=== PATIENT | male | born 1980 | race Caucasian/White ===

== ENCOUNTER 2019-01-30 17:44 | Observation (INO) | payer MEDICARE, MEDICAID ==
[2019-01-30] MEDS ORDERED: SODIUM CHLORIDE 0.9% 1000ML 1,000 ML IVS ONE ×3 (18:05→22:57)
[2019-01-30] MEDS ORDERED: ONDANSETRON INJ 4 MG/2 ML VIAL IV ONE (18:07)
--- NOTE | 2019-01-30 18:10 | ED.PDOC ---
History of Present Illness - General Chief Complaint: Diabetic Complaint Stated Complaint: Elevated BS Time Seen by Provider: 01/30/19 17:56 Source: patient Exam Limitations: no limitations - History of Present Illness Initial Comments: 38-year-old male with diabetes presents to the emergency department complaining of hyperglycemia. He reports that his insulin pen got frozen and he has been unable to inject himself with the appropriate amount of insulin and his blood sugars have been over 400 for the last 2 days. He denies any associated vomiting but has had nausea. He also reports that he ran out of his gabapentin and so is having worsening of the numbness in his feet and bilateral hands. He denies any fever or chills. He has not had any cough or congestion. Symptoms are currently moderate in severity and nothing he does seems to make them significantly better or worse. Allergies/Adverse Reactions: Allergies NO KNOWN ALLERGY Allergy (Verified 01/30/19 18:04) Home Medications: Ambulatory Orders Gabapentin 600 mg PO BID 01/30/19 Insulin Aspart Mix 70/30 [Novolog Mix 70/30] 15 units SUBCU BID 01/30/19 Review of Systems - Review of Systems Constitutional: States: malaise. Denies: fever, weakness EENTM: Denies: nose congestion, throat pain Respiratory: Denies: cough, short of breath Cardiology: Denies: chest pain, palpitations Gastrointestinal/Abdominal: States: nausea. Denies: abdominal pain, vomiting Genitourinary: States: frequency. Denies: dysuria Musculoskeletal: Denies: muscle pain, neck pain Skin: Denies: lesions, rash Neurological: States: numbness - bilateral hands and feet. Denies: headache, weakness Past Medical History (General) - Patient Medical History Hx Stroke: No Hx Cardiac Disorders: No Hx Hypertension: No Hx Diabetes: Yes Hx Cancer: No Surgical History: no surgical history - Vaccination History Hx Tetanus, Diphtheria Vaccination: No Hx Influenza Vaccination: Yes Hx Pneumococcal Vaccination: No Immunizations Up to Date: No - Social History Hx Tobacco Use: Yes Hx Alcohol Use: No Hx Substance Use: No Hx Substance Use Treatment: No Hx Depression: No - Female History Patient is a Female of Child Bearing Age (10 -59 yrs old): No Patient : No Family Medical History - Family History Mother Family History: No Known Physical Exam - Physical Exam General Appearance: Alert, Other - Thin Eye Exam: bilateral normal Ears, Nose, Throat: normal ENT inspection, normal pharynx Neck: full range of motion, normal inspection Respiratory: lungs clear, normal breath sounds, no respiratory distress Cardiovascular/Chest: regular rate, rhythm, no edema Peripheral Pulses: radial,right: 2+, radial,left: 2+, dorsalis pedis,right: 2+, dorsalis pedis,left: 2+ Gastrointestinal/Abdominal: normal bowel sounds, non tender, soft Extremity: normal range of motion, normal inspection, no pedal edema Neurologic: alert, sensory deficit - Reports decreased sensation in a stocking and glove distribution to bilateral hands and feet. No other sensory deficits noted., other - No motor weakness Skin Exam: normal color, warm/dry Comments: Vital Signs (72 hours) 01/30/19 17:56 Temperature 96.3 F L Pulse Rate [ 87 Pulse ox] Respiratory 18 Rate Blood Pressure 114/76 [R brachial] O2 Sat by Pulse 97 Oximetry Progress - Progress Progress: 01/30/19 18:30 Patient recheck: Lab and imaging results discussed along with plan for admission for treatment of his presumed DKA even though his bicarbonate is normal on his chemistry his anion gap is 25 and blood ketones were small however he has large urine ketones. At this time pH was unable to be obtained due to an issue with our ABG machine however it is ordered and they are working on obtaining this level.ice 01/30/19 18:50 I spoke with Jazmyn Pack for the hospitalist service regarding the patient's lab results so far. We discussed plan for admission and a bolus of IV fluids and insulin in the emergency department with recheck of the glucose afterwards and if the blood sugar comes close to the 300s range will admit to the floor most likely with a sliding scale. If not significantly changed will start on insulin drip. 01/30/19 20:02 Repeat fingerstick glucose after fluids and insulin was 330. At this time the patient will be admitted to the floor. - Results/Orders Results/Orders: 01/30/19 18:06 ABG [Arterial Blood Gas] Stat 01/30/19 18:29 ABG [Arterial Blood Gas] Stat Laboratory Results - last 24 hr 01/30/19 01/30/19 01/30/19 17:56 17:56 18:06 WBC 5.6 RBC 5.03 Hgb 15.5 Hct 46.0 MCV 91.5 MCH 30.9 MCHC 33.7 RDW 12.7 Plt Count 316 MPV 9.4 Absolute Neuts (auto) 3.90 Absolute Lymphs (auto) 1.10 Absolute Monos (auto) 0.50 Absolute Eos (auto) 0.10 Absolute Basos (auto) 0.10 Neutrophils % 69.2 Lymphocytes % 18.8 L Monocytes % 9.0 Eosinophils % 2.0 Basophils % 1.0 Sodium 130 L Potassium 5.1 H Chloride 89 L Carbon Dioxide 21 Anion Gap 25.1 H BUN 32 H Creatinine 0.92 BUN/Creatinine Ratio 34.8 H Random Glucose 552 H* Serum Osmolality 292.5 Calcium 9.9 Total Bilirubin 1.2 H AST 18 ALT 22 Alkaline Phosphatase 83 Serum Total Protein 8.1 Albumin 4.3 Globulin 3.8 H Albumin/Globulin Ratio 1.1 Urine Color Urine Appearance Urine pH Ur Specific [place] Urine Protein Urine Glucose (UA) Urine Ketones Urine Blood Urine Nitrite Urine Bilirubin Urine Urobilinogen Ur Leukocyte Esterase Urine RBC Urine WBC Ur Epithelial Cells Urine Bacteria Serum Ketones Small 01/30/19 18:42 WBC RBC Hgb Hct MCV MCH MCHC RDW Plt Count MPV Absolute Neuts (auto) Absolute Lymphs (auto) Absolute Monos (auto) Absolute Eos (auto) Absolute Basos (auto) Neutrophils % Lymphocytes % Monocytes % Eosinophils % Basophils % Sodium Potassium Chloride Carbon Dioxide Anion Gap BUN Creatinine BUN/Creatinine Ratio Random Glucose Serum Osmolality Calcium Total Bilirubin AST ALT Alkaline Phosphatase Serum Total Protein Albumin Globulin Albumin/Globulin Ratio Urine Color Yellow Urine Appearance Clear Urine pH 5.5 Ur Specific [place] 1.015 Urine Protein Negative Urine Glucose (UA) 500 H Urine Ketones >=160 Urine Blood Negative Urine Nitrite Negative Urine Bilirubin Negative Urine Urobilinogen 0.2 Ur Leukocyte Esterase Negative Urine RBC 0-1 Urine WBC 0 Ur Epithelial Cells 0 Urine Bacteria 0 Serum Ketones ABG: pH 7.375. PCO2: 27.2, PO2: 123.3, O2 saturation 99%, HCO3 :16. CXR read by radiology and reviewed by myself: IMPRESSION: No acute cardiopulmonary disease. 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 Departure - Departure Clinical Impression: Neuropathy Diabetes mellitus with ketoacidosis Qualifiers: Diabetes mellitus type: type 2 Diabetes mellitus retirement insulin use: without retirement use Diabetes mellitus complication detail: without coma Qualified Code(s): E11.10 - Type 2 diabetes mellitus with ketoacidosis without coma Time of Disposition: 19:34 Condition: Fair Home Medications: Ambulatory Orders Gabapentin 600 mg PO BID 01/30/19 Insulin Aspart Mix 70/30 [Novolog Mix 70/30] 15 units SUBCU BID 01/30/19 Decision To Admit - Decistion To Admit Decision to Admit Date: 01/30/19 Decision to Admit Time: 18:45
[2019-01-30] MEDS ORDERED: INSULIN, REG.(HUMAN) 100 U/ML VIAL IV ONE (18:53)
--- NOTE | 2019-01-30 18:59 | RAD ---
EXAM DESCRIPTION: Chest,1 View CLINICAL HISTORY:38 years Male, DKA Comparison: None FINDINGS: No focal lung consolidation. No pleural effusion. No pneumothorax. Cardiomediastinal silhouette is within normal limits. No acute osseous abnormality. IMPRESSION: No acute cardiopulmonary disease. Electronically signed by: Melchor Dockery DO 01/30/2019 6:58 PM [employer]
--- NOTE | 2019-01-30 21:24 | HP ---
SUPERVISING PHYSICIAN: Robin Matthews MD CHIEF COMPLAINT: Elevated blood sugar as well as weakness with nausea. HISTORY OF PRESENT ILLNESS: This is a 38-year-old male patient with a history of type 2 diabetes that was diagnosed about 7 or 8 years ago who came to the Emergency Room complaining of elevated blood sugars as well as some weakness with nausea. He said his insulin pen became frozen in his refrigerator and he has been unable to inject himself with his usual insulin dosage and his blood sugars have been over 400. He has had nausea, but no vomiting, very weak with neuropathy. There has been no fever or chills, no cough or congestion. In the Emergency Room, his initial vital signs were temperature 96.3, heart rate 87, blood pressure 114/76, respiratory rate 18, O2 saturation 97% on room air. Lab was done. His CBC was unremarkable. His sodium was 130, potassium 5.1, chloride 89, carbon dioxide 21, anion gap was 25.1, BUN 32, creatinine 0.92. Blood glucose was 552. Total bilirubin 1.2. Urinalysis was unremarkable. He did have a small amount of serum ketones. His chest x-ray showed no acute cardiopulmonary disease. He received some IV regular insulin in the Emergency Room as well as Zofran and 2 liters of saline. I was called for hospital admission. PAST MEDICAL HISTORY: 1. Diabetes mellitus, type 2 PAST SURGICAL HISTORY: None. OUTPATIENT MEDICATIONS: 1. Insulin 70/30. 2. Gabapentin. ALLERGIES: NO KNOWN DRUG ALLERGIES. SOCIAL HISTORY: He lives in [place]. 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 He is . He has 2 children. He smokes about 2 cigarettes daily. He denies any ETOH or illicit drug use. REVIEW OF SYSTEMS: GENERAL: Positive for fatigue. Negative for fever or weight changes. HEENT: Negative for sinus symptoms, ear pain, vision changes or sore throat. RESPIRATORY: Negative for wheezing, coughing or shortness of breath. CARDIAC: Negative for chest pain, palpitations or tachycardia. GASTROINTESTINAL: Positive for nausea. Negative for vomiting or abdominal pain. GENITOURINARY: Positive for increased frequency. Negative for hematuria, dysuria. MUSCULOSKELETAL: Negative for muscle pain or arthralgias. SKIN: Negative for lesions or rashes. NEUROLOGIC: Positive for numbness and neuropathy. Negative for headache or seizures. PHYSICAL EXAMINATION: VITAL SIGNS: Temperature 98.1. Heart rate 72. Blood pressure 122/73. Respiratory rate 20. O2 saturation 98% on room air. GENERAL: This is a 38-year-old male patient who is very thin. He is in no acute distress. HEENT: Normocephalic, atraumatic. Pupils are equal and reactive. Oropharynx is clear, but oral mucous membranes are dry. NECK: Supple without mass. RESPIRATORY: Essentially clear to auscultation bilaterally. CHEST: There is equal rise and fall of the chest with inspiration and expiration. CARDIOVASCULAR: Regular rate and rhythm. GASTROINTESTINAL: Abdomen is soft, nondistended, nontender. Bowel sounds are positive. EXTREMITIES: No cyanosis, clubbing or edema. NEUROLOGIC: Awake, alert and oriented times three. Cranial nerves II-XII are grossly intact. SKIN: Warm and dry. LABORATORY: Labs and films are as per history of present illness. IMPRESSION: 1. Hyperglycemia with positive serum ketones. 2. Diabetes mellitus, type 2. 3. Tobacco abuse. PLAN: The patient has been placed in observation. He will have q.4h. blood sugar sugars with sliding scale insulin. I will check his BMP and serum ketones every 4 hours until they normalize. At this point, he will have saline at 250 and we will change his fluids as his BMPs are resulted. Hopefully in the morning he can restart his routine home medications. He will have SCDs for DVT prophylaxis. He will NPO until the morning. I have given him some Zofran for antiemetics. He will have a proton pump inhibitor for ulcer prophylaxis. We are awaiting the results of ABG as the ABG had to be sent out for results. We will continue to monitor the patient closely and follow as needed. #[id number] [facility]
[2019-01-30] MEDS ORDERED: DEXTROSE 10% 500ML IVPB PRN (22:32)
[2019-01-30] MEDS ORDERED: GLUCAGON INJ 1 MG VIAL SUBCU PRN (22:32)
[2019-01-30] MEDS ORDERED: GABAPENTIN 300 MG CAP ONE (22:48)
[2019-01-30] MEDS: NON-FORMULARY MEDICATION 1 EA MIS (Gabapentin [Gabapentin] 600 MG) PO SCH (22:50)
[2019-01-30] MEDS ORDERED: INSULIN LISPRO 100 UNITS/ML PEN SUBCU ONE (23:02)
[2019-01-30] MEDS ORDERED: ONDANSETRON INJ 4 MG/2 ML VIAL IV PRN (23:03)
[2019-01-30] MEDS ORDERED: ALBUTEROL SULFATE 2.5 MG/3 ML VIAL NEB PRN (23:03)
[2019-01-30] MEDS ORDERED: SODIUM CHLORIDE 0.9% (FLUSH) 10 ML SYG IV PRN (23:03)
[2019-01-30] MEDS ORDERED: IV SET AND CAP CHANGE INJ INJ SCH (23:30)
[2019-01-31] MEDS: INSULIN LISPRO 100 UNITS/ML PEN SUBCU SCH ×4 (00:09→12:02)
[2019-01-31] MEDS ORDERED: KCL 20MEQ/D5 1/2NS 1,000 ML IVS ONE ×2 (03:00→03:04)
[2019-01-31] MEDS ORDERED: GABAPENTIN 300 MG CAP ONE (07:08)
[2019-01-31] MEDS: NON-FORMULARY MEDICATION 1 EA MIS (Gabapentin [Gabapentin] 600 MG) PO SCH (08:18)
[2019-01-31] MEDS ORDERED: SODIUM CHLORIDE 0.9% (FLUSH) 10 ML SYG IV SCH (09:00)
[2019-01-31] MEDS ORDERED: metFORMIN HCL 500 MG TAB PO SCH ×2 (09:00→17:00)
[2019-01-31 10:19] VITALS: BP 110/75; TEMP 98.6; O2SAT 98
[2019-01-31] MEDS ORDERED: GABAPENTIN 300 MG CAP PO SCH (21:00)
--- NOTE | 2019-02-14 08:21 | DS ---
SUPERVISING PHYSICIAN: Viridiana Becerra MD ADMISSION DIAGNOSIS: 1. Hyperglycemia with positive serum ketones. 2. Diabetes mellitus, type 2, poorly controlled. 3. Chronic tobacco abuse. DISCHARGE DIAGNOSIS: 1. Diabetes mellitus, type 2, poorly controlled with a hyperglycemic event, resolved. 2. Chronic tobacco abuse. REASON FOR HOSPITALIZATION: This is a 38-year-old male patient with a history of type 2 diabetes that was diagnosed about 7 or 8 years ago who came to the Emergency Room complaining of elevated blood sugars as well as some weakness with nausea. He said his insulin pen became frozen in his refrigerator and he has been unable to inject himself with his usual insulin dosage and his blood sugars have been over 400. He has had nausea, but no vomiting, very weak with neuropathy. There has been no fever or chills, no cough or congestion. In the Emergency Room, his initial vital signs were temperature 96.3, heart rate 87, blood pressure 114/76, respiratory rate 18, O2 saturation 97% on room air. Lab was done. His CBC was unremarkable. His sodium was 130, potassium 5.1, chloride 89, carbon dioxide 21, anion gap was 25.1, BUN 32, creatinine 0.92. Blood glucose was 552. Total bilirubin 1.2. Urinalysis was unremarkable. He did have a small amount of serum ketones. His chest x-ray showed no acute cardiopulmonary disease. He received some IV regular insulin in the Emergency Room as well as Zofran and 2 liters of saline. The patient was placed in observation in stable condition. LABORATORY: White count on discharge was 4,800, hemoglobin 13.8, hematocrit 40.9. Differential within normal limits. Chemistries showed discharge sodium was 134. Other electrolytes were within normal limits. Blood sugar on admission initially was 336. On discharge, it was 276, magnesium 1.8, calcium 8.4. Urine showed 500 glucose. He had a small amount of ketones initially on admission and prior to discharge was showing negative ketones. RADIOLOGY: Chest x-ray showed no acute cardiopulmonary disease. HOSPITAL COURSE: Mr. Schmitt was admitted as noted for a hyperglycemic event with some ketones, but was not noted to be in full diabetic ketoacidosis. He was given fluids overnight and showed resolution of his ketones and was felt clinically stable enough to discharge to continue with outpatient management. PLAN: Mr. Schmitt was discharged on 01/31/19 with instructions to followup with his primary care physician. He was to avoid putting his insulin in the refrigerator where it would freeze. He was told to return to the hospital as needed for any other concerning symptoms. Diet was diabetic diet. Activity to increase as tolerated. PRESCRIPTIONS WRITTEN AT DISCHARGE: 1. Gabapentin 600 mg twice daily, #60. 2. Insulin NovoLog total of 46 units daily with 20 units in the morning and 26 units at night. He was given 1 bottle prescription with no refills. DISPOSITION: The patient is discharged home. CONDITION ON DISCHARGE: Stable and improved. #[id number] [facility]
== END 2019-01-31 12:19 | disposition home or self-care (01) ==
LOC: ER 17:44 → MS 21:21
PROVIDERS: ADMIT Nurse Practitioner Acute Care; ATTEND Nurse Practitioner Family
DX: E11.65 Type 2 diabetes mellitus with hyperglycemia (principal); R82.4 Acetonuria; F17.210 Nicotine dependence, cigarettes, uncomplicated; E11.42 Type 2 diabetes mellitus with diabetic polyneuropathy; R53.1 Weakness; R11.0 Nausea; Z79.4 Long term (current) use of insulin; Z79.899 Other long term (current) drug therapy

== ENCOUNTER 2019-03-12 00:40 | Emergency (ER) | payer MEDICARE, MEDICAID ==
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
[2019-03-12] MEDS ORDERED: SODIUM CHLORIDE 0.9% 1000ML 1,000 ML IVS ONE ×2 (01:36→03:19)
[2019-03-12] MEDS ORDERED: INSULIN, REG.(HUMAN) 100 U/ML VIAL IV ONE ×2 (02:10→03:18)
[2019-03-12 02:11] VITALS: O2SAT 98
[2019-03-12] MEDS ORDERED: SODIUM CHLORIDE 0.9% 1000ML 500 ML IVS ONE (02:14)
[2019-03-12 04:07] VITALS: BP 118/77; TEMP 97.2
== END 2019-03-12 04:07 | disposition home or self-care (01) ==
LOC: ER 00:40
DX: E11.65 Type 2 diabetes mellitus with hyperglycemia (principal); R05 Cough; Z79.4 Long term (current) use of insulin; Z79.899 Other long term (current) drug therapy; Z87.891 Personal history of nicotine dependence
CPT/HCPCS: 80053; 81001; 82947; 82948; 85025; 87502; J7030

== ENCOUNTER 2019-05-17 22:15 | Emergency (ER) | payer MEDICARE, MEDICAID ==
[2019-05-17] MEDS ORDERED: SODIUM CHLORIDE 0.9% 1000ML 1,000 ML IVS ONE (23:05)
[2019-05-17] MEDS ORDERED: ONDANSETRON INJ 4 MG/2 ML VIAL IV ONE (23:05)
[2019-05-17] MEDS ORDERED: SODIUM CHLORIDE 0.9% (FLUSH) 10 ML SYG IV PRN (23:05)
[2019-05-17] MEDS ORDERED: ALUM & MAG HYDROX-SIMETHICONE 30 ML, LIDOCAINE VISCOUS 2% 15 ML PO ONE ×2 (23:17)
--- NOTE | 2019-05-17 23:19 | ED.PDOC ---
History of Present Illness - General Chief Complaint: General Stated Complaint: weak, stomach pains, for 2 days Time Seen by Provider: 05/17/19 22:36 Source: patient, RN notes reviewed, Vital Signs reviewed Exam Limitations: no limitations - History of Present Illness Initial Comments: Patient is a 38-year-old white male who presents with complaints of abdominal pain and nausea and generalized weakness for the last 2 days. Patient initially thought this might be the flu or strep throat. But since he was not running a fever he does not believe he has this. Additionally, patient thought his blood sugars were out of whack, but when he checked his sugars on the meter they were fine. Patient has been a type I diabetic for approximately 5 years. Patient denies any headache, dizziness, blurry vision, chest pain, shortness of breath, diarrhea. Patient's had some nausea and vomiting. Additionally patient has had some generalized malaise and fatigue. Patient denies any fever or chills. Timing/Duration: getting worse, other - 2 days Severity: moderate Improving Factors: nothing Worsening Factors: movement Associated Symptoms: loss of appetite, malaise, weakness Allergies/Adverse Reactions: Allergies NO KNOWN ALLERGY Allergy (Verified 01/30/19 18:04) Home Medications: Ambulatory Orders Insulin Aspart Mix 70/30 [Novolog Mix 70/30] 15 units SUBCU BID 01/30/19 Gabapentin 600 mg PO BID #60 tab 01/31/19 Insulin Aspart [Novolog Flexpen] 46 units SC DAILY #1 bottle 01/31/19 Metformin HCl [Metformin Hydrochloride] 500 mg PO BID #60 tab 01/31/19 Gabapentin 300 mg PO Q12HR #20 cap 04/16/19 Review of Systems - Review of Systems Constitutional: States: see HPI, chills, malaise, weakness. Denies: fever EENTM: States: see HPI, throat pain, throat swelling. Denies: blurred vision, double vision, nose pain, nose congestion Respiratory: States: see HPI. Denies: cough, short of breath, wheezing Cardiology: States: no symptoms reported. Denies: chest pain, palpitations, syncope Gastrointestinal/Abdominal: States: see HPI, abdominal pain, nausea, vomiting. Denies: diarrhea Genitourinary: States: no symptoms reported. Denies: discharge, dysuria, frequency, hematuria Musculoskeletal: States: no symptoms reported. Denies: back pain, neck pain Skin: States: no symptoms reported. Denies: change in color, rash Neurological: States: see HPI, weakness. Denies: headache, numbness, paresthesia, tingling, tremors Endocrine: States: no symptoms reported. Denies: excessive sweating, flushing, intolerance to cold, intolerance to heat, increased hunger, increased thirst, increased urine Hematologic/Lymphatic: States: no symptoms reported All other Systems: No Change from Baseline Past Medical History (General) - Patient Medical History Hx Seizures: No Hx Stroke: No Hx Dementia: No Hx Asthma: No Hx of COPD: No Hx Cardiac Disorders: No Hx Congestive Heart Failure: No Hx Pacemaker: No Hx Hypertension: No Hx Thyroid Disease: No Hx Diabetes: Yes Hx Gastroesophageal Reflux: No Hx Renal Disease: No Hx Cancer: No Hx of HIV: No Hx Hepatitis C: No Hx MRSA: No Surgical History: no surgical history - Vaccination History Hx Tetanus, Diphtheria Vaccination: Yes Hx Influenza Vaccination: Yes Hx Pneumococcal Vaccination: No Immunizations Up to Date: Yes - Social History Hx Tobacco Use: No Hx Chewing Tobacco Use: No Hx Alcohol Use: No Hx Substance Use: No Hx Substance Use Treatment: No Hx Depression: No Feels Threatened In Home Enviroment: No Feels Threatened In a Relationship: No Hx Physical Abuse: No Hx Emotional Abuse: No Hx Suspected Abuse: No - Activities of Daily Living Hospice Agency (if applicable):: None - Female History Patient is a Female of Child Bearing Age (10 -59 yrs old): No Patient : No Family Medical History - Family History Mother Family History: No Known Age (years): 58 Living Status: Still Living Hx Family;Other: hepatitis hx Physical Exam - Physical Exam General Appearance: Alert, Anxious, Well Developed, Well Groomed Eye Exam: bilateral normal Ears, Nose, Throat: hearing grossly normal, normal pharynx Neck: non-tender, full range of motion, supple, lymphadenopathy (R), lymphadenopathy (L) Respiratory: chest non-tender, lungs clear, normal breath sounds, no respiratory distress, no accessory muscle use Cardiovascular/Chest: normal peripheral pulses, regular rate, rhythm, no edema, no gallop, no JVD, no murmur Peripheral Pulses: radial,right: 2+, radial,left: 2+ Gastrointestinal/Abdominal: normal bowel sounds, soft, no organomegaly, other - Voluntary guarding. 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 05/18/19 00:23 Parents laboratory work shows that he is extremely dehydrated. He also has strep throat. Patient's been given a liter of IV fluids and IV Zofran is feeling much better. Patient was started on treatment for his strep throat with Bicillin 1,200,000 units IM. Plan on taking the patient off work x2 days and follow-up with his PCP. I discussed this plan of care with the patient he voices understanding and agreement. Mikel Carpenter M.D. #[id number] - Results/Orders Results/Orders: 05/17/19 23:05 IV Care:Saline Lock per Protoc QSHIFT Sodium Chloride 0.9% (Flush) [Saline Flush Syringe] 10 ml IV PRN PRN Laboratory Results - last 24 hr 05/17/19 05/17/19 05/17/19 23:20 23:20 23:20 WBC 6.1 RBC 5.02 Hgb 15.8 Hct 45.9 MCV 91.5 MCH 31.4 H MCHC 34.4 RDW 13.1 Plt Count 291 MPV 8.1 Absolute Neuts (auto) 4.00 Absolute Lymphs (auto) 1.40 Absolute Monos (auto) 0.60 Absolute Eos (auto) 0.10 Absolute Basos (auto) 0.10 Neutrophils % 65.0 Lymphocytes % 23.3 Monocytes % 9.2 H Eosinophils % 1.3 Basophils % 1.2 Sodium 133 L Potassium 4.3 Chloride 95 L Carbon Dioxide 27 Anion Gap 15.3 BUN 26 H Creatinine 0.80 BUN/Creatinine Ratio 32.5 H Random Glucose 219 H Serum Osmolality 277.8 Calcium 9.6 Total Bilirubin 0.8 Direct Bilirubin 0.1 Indirect Bilirubin 0.7 AST 51 H ALT 74 H Alkaline Phosphatase 92 Serum Total Protein 7.4 Albumin 3.8 Lipase 31 Urine Color Yellow Urine Appearance Cloudy Urine pH 5.5 Ur Specific [place] >= 1.030 Urine Protein 30 Urine Glucose (UA) 500 H Urine Ketones 40 H Urine Blood Negative Urine Nitrite Negative Urine Bilirubin Moderate Urine Urobilinogen 0.2 Ur Leukocyte Esterase Negative Urine RBC 0 Urine WBC 0 Ur Epithelial Cells 0 Amorphous Sediment 2+ Urine Bacteria 1+ Group A Strep Rapid 05/17/19 23:20 WBC RBC Hgb Hct MCV MCH MCHC RDW Plt Count MPV Absolute Neuts (auto) Absolute Lymphs (auto) Absolute Monos (auto) Absolute Eos (auto) Absolute Basos (auto) Neutrophils % Lymphocytes % Monocytes % Eosinophils % Basophils % Sodium Potassium Chloride Carbon Dioxide Anion Gap BUN Creatinine BUN/Creatinine Ratio Random Glucose Serum Osmolality Calcium Total Bilirubin Direct Bilirubin Indirect Bilirubin AST ALT Alkaline Phosphatase Serum Total Protein Albumin Lipase Urine Color Urine Appearance Urine pH Ur Specific [place] Urine Protein Urine Glucose (UA) Urine Ketones Urine Blood Urine Nitrite Urine Bilirubin Urine Urobilinogen Ur Leukocyte Esterase Urine RBC Urine WBC Ur Epithelial Cells Amorphous Sediment Urine Bacteria Group A Strep Rapid Positive Departure - Departure Clinical Impression: Strep throat, Dehydration, Elevated liver function tests Time of Disposition: 00:28 Disposition: Discharge to Home or Self Care Condition: Good Departure Forms: ED Discharge - Pt. Copy, Patient Portal Self Enrollment Diet: diabetic diet Activity: increase activity as tolerated Referrals: Jim Blevins MD [Primary Care Provider] - 1-5 Days Home Medications: Ambulatory Orders Insulin Aspart Mix 70/30 [Novolog Mix 70/30] 15 units SUBCU BID 01/30/19 Gabapentin 600 mg PO BID #60 tab 01/31/19 Insulin Aspart [Novolog Flexpen] 46 units SC DAILY #1 bottle 01/31/19 Metformin HCl [Metformin Hydrochloride] 500 mg PO BID #60 tab 01/31/19 Gabapentin 300 mg PO Q12HR #20 cap 04/16/19
[2019-05-17] MEDS ORDERED: ALUM & MAG HYDROX-SIMETHICONE 30 ML UD ONE (23:50)
[2019-05-17] MEDS ORDERED: LIDOCAINE HCL 2% (MOUTH-THROAT) 15 ML UD ONE (23:50)
[2019-05-18] MEDS ORDERED: PENICILLIN BENZATHINE 1.2 MU 1.2 MU/2 ML SYG IM ONE (00:02)
[2019-05-18 01:15] VITALS: BP 104/63; TEMP 97.9; O2SAT 98
== END 2019-05-18 00:40 | disposition home or self-care (01) ==
LOC: ER 22:15
DX: J02.0 Streptococcal pharyngitis (principal); E86.0 Dehydration; R94.5 Abnormal results of liver function studies; E10.9 Type 1 diabetes mellitus without complications; Z79.4 Long term (current) use of insulin; Z79.899 Other long term (current) drug therapy
CPT/HCPCS: 36415; 80048; 80076; 81001; 83690; 85025; 87502; 87880; J0561; J2405; J7030

== ENCOUNTER 2019-10-24 01:00 | Emergency (ER) | payer MEDICARE, MEDICAID ==
[2019-10-24 01:13] VITALS: TEMP 97.5
[2019-10-24] MEDS ORDERED: SODIUM CHLORIDE 0.9% (FLUSH) 10 ML SYG IV PRN (01:30)
[2019-10-24] MEDS ORDERED: SODIUM CHLORIDE 0.9% 1000ML 1,000 ML IVS ONE (01:30)
[2019-10-24] MEDS ORDERED: INSULIN, REG.(HUMAN) 100 U/ML VIAL IV ONE (01:30)
--- NOTE | 2019-10-24 02:31 | ED.PDOC ---
History of Present Illness - General Chief Complaint: GI Problem Stated Complaint: nausea, high glucose Time Seen by Provider: 10/24/19 01:30 Source: patient, RN notes reviewed, Vital Signs reviewed, EMS notes reviewed Exam Limitations: no limitations - History of Present Illness Initial Comments: Patient is a 39-year-old white male who presents with complaints of elevated blood sugar, multiple sores on his skin and being out of his medication. Patient states that he ran out of his medication because he cannot get to the pharmacy. Patient apparently has refills on his prescriptions. Patient's car recently broke down he is been unable to repair it to get into town to fill his medications. Timing/Duration: 1 week Severity: moderate Improving Factors: medication - His insulin Worsening Factors: nothing Associated Symptoms: malaise, nausea/vomiting - Nausea only Allergies/Adverse Reactions: Allergies NO KNOWN ALLERGY Allergy (Verified 01/30/19 18:04) Home Medications: Ambulatory Orders Gabapentin 300 mg PO BID 05/21/19 Insulin Detemir [Levemir] 15 unit SUBCU BID #1 pen 05/22/19 Insulin Detemir [Levemir] 15 unit SUBCU BID #1 pen 10/24/19 Review of Systems - Review of Systems Constitutional: States: see HPI, malaise. Denies: chills, fever, weakness EENTM: States: no symptoms reported. Denies: eye pain, blurred vision, double vision Respiratory: States: no symptoms reported. Denies: cough, short of breath, stridor, wheezing Cardiology: States: no symptoms reported. Denies: chest pain, palpitations, syncope Gastrointestinal/Abdominal: States: see HPI, nausea. Denies: abdominal pain, vomiting Genitourinary: States: no symptoms reported. Denies: dysuria, frequency Musculoskeletal: States: no symptoms reported. Denies: back pain, joint pain, neck pain Skin: States: see HPI, lesions Neurological: States: see HPI, numbness - Of his feet, paresthesia, tingling - Of his feet, weakness - Generalized Endocrine: States: see HPI, increased hunger, increased thirst, increased urine Hematologic/Lymphatic: States: no symptoms reported All other Systems: No Change from Baseline Past Medical History (General) - Patient Medical History Hx Seizures: No Hx Stroke: No Hx Dementia: No Hx Asthma: No Hx of COPD: No Hx Cardiac Disorders: No Hx Congestive Heart Failure: No Hx Pacemaker: No Hx Hypertension: No Hx Thyroid Disease: No Hx Diabetes: Yes Hx Gastroesophageal Reflux: No Hx Renal Disease: No Hx Cancer: No Hx of HIV: No Hx Hepatitis C: No Hx MRSA: No Surgical History: no surgical history - Vaccination History Hx Tetanus, Diphtheria Vaccination: Yes Hx Influenza Vaccination: No Hx Pneumococcal Vaccination: No - Social History Hx Tobacco Use: No Hx Chewing Tobacco Use: No Hx Alcohol Use: Yes Hx Substance Use: No Hx Substance Use Treatment: No Hx Depression: No Feels Threatened In Home Enviroment: No Feels Threatened In a Relationship: No Hx Physical Abuse: No Hx Emotional Abuse: No Hx Suspected Abuse: No - Female History Patient is a Female of Child Bearing Age (10 -59 yrs old): No Patient : No - Triage Comment ED Triage Comment: The patient was brought in by [facility] and was alert and oriented times 4. EMS stated that they were getting blood sugar readings around 400. The pateint was able to move onto the hospital bed under his own power and complained of feeling bad due to high blood sugar. He also complained of pain in his feet due to neuropothy. Family Medical History - Family History Mother Family History: No Known Age (years): 58 Living Status: Still Living Hx Family;Other: hepatitis hx Physical Exam - Physical Exam General Appearance: Alert, Comfortable, Well Developed, Well Groomed, Well Hydrated, Well Nourished Eye Exam: bilateral normal Ears, Nose, Throat: hearing grossly normal, normal pharynx Neck: non-tender, full range of motion, supple Respiratory: chest non-tender, lungs clear, normal breath sounds, no respiratory distress Cardiovascular/Chest: normal peripheral pulses, no edema, no gallop, no murmur, tachycardia Peripheral Pulses: radial,right: 2+, radial,left: 2+ Gastrointestinal/Abdominal: normal bowel sounds, non tender, soft Back Exam: normal inspection, no CVA tenderness, no vertebral tenderness Extremity: normal range of motion, non-tender, normal inspection 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 No acute cellulitis or abscess or infection. Lymphatic: no adenopathy Progress - Progress Progress: Differential diagnosis: DKA, hyperglycemia, skin abscess, medication noncompliance among others. 10/24/19 03:25 Patient's blood sugar has come down well after insulin IV and IV fluids. Patient's heart rate has now normalized. Patient admits to medication noncompliance due to inability to obtain transportation to refill his medications. Patient does have refills at the pharmacy. Plan on discharge home. Patient to refill his meds on Thursday. Patient voices understanding of the plan of care. - Results/Orders Results/Orders: 10/24/19 01:30 IV Care:Saline Lock per Protoc QSHIFT Sodium Chloride 0.9% (Flush) [Saline Flush Syringe] 10 ml IV PRN PRN Laboratory Results - last 24 hr 10/24/19 10/24/19 10/24/19 01:44 01:44 01:44 WBC 8.2 RBC 4.87 Hgb 15.0 Hct 43.2 MCV 88.7 MCH 30.8 MCHC 34.8 RDW 12.6 Plt Count 328 MPV 7.9 Absolute Neuts (auto) 5.20 Absolute Lymphs (auto) 2.20 Absolute Monos (auto) 0.70 Absolute Eos (auto) 0.20 Absolute Basos (auto) 0.10 Neutrophils % 63.1 Lymphocytes % 26.4 Monocytes % 8.1 Eosinophils % 1.8 Basophils % 0.6 Sodium 131 L Potassium 4.7 Chloride 94 L Carbon Dioxide 19 L Anion Gap 22.7 H BUN 29 H Creatinine 0.78 BUN/Creatinine Ratio 37.2 H POC Glucose Random Glucose 513 H* 520 H* Serum Osmolality 291.9 Calcium 9.3 Total Bilirubin 1.3 H Direct Bilirubin 0.1 Indirect Bilirubin 1.2 H AST 18 ALT 28 Alkaline Phosphatase 86 Serum Total Protein 7.5 Albumin 4.2 Lipase 40 Urine Color Urine Appearance Urine pH Ur Specific [place] Urine Protein Urine Glucose (UA) Urine Ketones Urine Blood Urine Nitrite Urine Bilirubin Urine Urobilinogen Ur Leukocyte Esterase Urine RBC Urine WBC Ur Epithelial Cells Urine Bacteria Urine Opiates Screen Urine Barbiturates Ur Phencyclidine Scrn U Amphetamin/Meth Scrn U Benzodiazepines Scrn U Cocaine Metab Screen U Cannabinoids Screen 10/24/19 10/24/19 10/24/19 02:52 02:52 03:14 WBC RBC Hgb Hct MCV MCH MCHC RDW Plt Count MPV Absolute Neuts (auto) Absolute Lymphs (auto) Absolute Monos (auto) Absolute Eos (auto) Absolute Basos (auto) Neutrophils % Lymphocytes % Monocytes % Eosinophils % Basophils % Sodium Potassium Chloride Carbon Dioxide Anion Gap BUN Creatinine BUN/Creatinine Ratio POC Glucose 334 H Random Glucose Serum Osmolality Calcium Total Bilirubin Direct Bilirubin Indirect Bilirubin AST ALT Alkaline Phosphatase Serum Total Protein Albumin Lipase Urine Color Yellow Urine Appearance Clear Urine pH 5.0 Ur Specific [place] 1.015 Urine Protein Negative Urine Glucose (UA) 500 H Urine Ketones >=160 Urine Blood Negative Urine Nitrite Negative Urine Bilirubin Negative Urine Urobilinogen 0.2 Ur Leukocyte Esterase Negative Urine RBC 0 Urine WBC 0 Ur Epithelial Cells 0 Urine Bacteria 0 Urine Opiates Screen Negative Urine Barbiturates Negative Ur Phencyclidine Scrn Negative U Amphetamin/Meth Scrn Negative U Benzodiazepines Scrn Negative U Cocaine Metab Screen Negative U Cannabinoids Screen Negative EKG performed on 23 October 2019 at 2254 hrs.: Sinus tachycardia 116 bpm, nonspecific ST and T wave changes, abnormal EKG. No comparison EKG available at this time. Vital Signs 10/24/19 01:08 Temperature 97.5 F L Pulse Rate [ 101 H Pulse Ox] Respiratory 14 Rate Blood Pressure 123/72 [Left Arm] O2 Sat by Pulse 98 Oximetry Departure - Departure Clinical Impression: Hyperglycemia, Nonadherence to medication, Dehydration Time of Disposition: 03:28 Disposition: Discharge to Home or Self Care Condition: Good Departure Forms: ED Discharge - Pt. Copy, Patient Portal Self Enrollment Instructions: Hyperglycemia, Adult (DC), Dehydration, Adult (DC) Diet: diabetic diet Referrals: Jim Blevins MD [Primary Care Provider] - 1-5 Days Prescriptions: Insulin Detemir [Levemir] 15 unit SUBCU BID #1 pen Home Medications: Ambulatory Orders Gabapentin 300 mg PO BID 05/21/19 Insulin Detemir [Levemir] 15 unit SUBCU BID #1 pen 05/22/19 Insulin Detemir [Levemir] 15 unit SUBCU BID #1 pen 10/24/19
[2019-10-24 03:39] VITALS: O2SAT 97
[2019-10-24 03:40] VITALS: BP 113/69
== END 2019-10-24 03:40 | disposition home or self-care (01) ==
LOC: ER 01:00
DX: E11.65 Type 2 diabetes mellitus with hyperglycemia (principal); E86.0 Dehydration; R11.0 Nausea; R00.0 Tachycardia, unspecified; L98.9 Disorder of the skin and subcutaneous tissue, unspecified; R20.2 Paresthesia of skin; Z91.14 Patient's other noncompliance with medication regimen; Z79.4 Long term (current) use of insulin
CPT/HCPCS: 80048; 80076; 80307; 81001; 82947; 82948; 83690; 85025; A4216; J7030